=== PATIENT | male | born 1945 | race Caucasian/White ===

== ENCOUNTER 2021-03-12 09:39 | Outpatient (CLI) | payer MEDICARE, SELFPAY ==
--- NOTE | 2021-03-12 11:30 | NEURO_ITS ---
Impression: # Complains of pain and numbness of upper extremities. # Left ulnar neuropathy across the elbow. # Bilateral sensory Carpal Tunnel Syndrome. # Needle/EMG exam neurogenic; Higher involvement needs to be ruled out as well. Nerve Conduction Studies Anti Sensory Summary Table Stim Site NR Peak (ms) P-T Amp (?V) Site1 Site2 Delta-P (ms) Dist (cm) Da (m/s) Left Median Anti Sensory (2-3nd Digit) Wrist 5.3 73.1 Wrist 2-3nd Digit 5.3 14.0 26 Wrist 4.8 117.2 Wrist 2-3nd Digit 5.3 14.0 26 Right Median Anti Sensory (2-3nd Digit) Wrist 5.4 86.0 Wrist 2-3nd Digit 5.4 14.0 26 Wrist 5.5 118.1 Wrist 2-3nd Digit 5.4 14.0 26 Left Radial Anti Sensory (Base 1st Digit) Wrist 2.0 33.0 Wrist Base 1st Digit 2.0 0.0 Right Radial Anti Sensory (Base 1st Digit) Wrist 2.0 24.2 Wrist Base 1st Digit 2.0 0.0 Left Ulnar Anti Sensory (5th Digit) Wrist 3.1 15.9 Wrist 5th Digit 3.1 14.0 45 Right Ulnar Anti Sensory (5th Digit) Wrist 174.3 Wrist 5th Digit 14.0 Motor Summary Table Stim Site NR Onset (ms) O-P Amp (mV) Site1 Site2 Delta-0 (ms) Dist (cm) Da (m/s) Left Median Motor (Abd Poll Brev) Wrist 3.4 3.3 Elbow Wrist 6.0 25.0 42 Elbow 9.4 2.1 Right Median Motor (Abd Poll Brev) Wrist 3.6 5.4 Elbow Wrist 4.5 25.0 56 Elbow 8.1 4.5 Left Ulnar Motor (Abd Dig Minimi) Wrist 1.8 8.6 A Elbow Wrist 5.2 27.0 52 A Elbow 7.0 5.7 Right Ulnar Motor (Abd Dig Minimi) Wrist 2.3 11.2 A Elbow Wrist 4.1 25.0 61 A Elbow 6.4 10.3 F Wave Studies NR F-Lat (ms) L-R F-Lat (ms) Left Median (Mrkrs) (Abd Poll Brev) 28.08 1.53 Right Median (Mrkrs) (Abd Poll Brev) 29.61 1.53 Left Ulnar (Mrkrs) (Abd Dig Min) 27.42 1.38 Right Ulnar (Mrkrs) (Abd Dig Min) 26.04 1.38 EMG Side Muscle Nerve Root Ins Act Fibs Amp Dur Recrt Comment Right 1stDorInt Ulnar C8-T1 Nml Nml Nml >12ms Reduced Right Ext Indicis Radial (Post Int) C7-8 Nml Nml Nml Nml Nml Right Ext Digitorum Radial (Post Int) C7-8 Nml Nml Nml Nml Nml Right BrachioRad Radial C5-6 Nml Nml Nml Nml Nml Right PronatorTeres Median C6-7 Nml Nml Nml Nml Nml Right Abd Poll Brev Median C8-T1 Nml Nml Nml >12ms Reduced Left 1stDorInt Ulnar C8-T1 Nml Nml Nml >12ms Reduced Left Ext Indicis Radial (Post Int) C7-8 Nml Nml Nml Nml Nml Left Ext Digitorum Radial (Post Int) C7-8 Nml Nml Nml Nml Nml Left BrachioRad Radial C5-6 Nml Nml Nml Nml Nml Left PronatorTeres Median C6-7 Nml Nml Nml Nml Nml Left Abd Poll Brev Median C8-T1 Nml Nml Nml >12ms Reduced MTDD
== END 2021-03-12 09:40 | disposition home or self-care (01) ==
LOC: ANHNEURO 09:46
PROVIDERS: PCP Family Medicine; Visit Provider Family Medicine
DX: G56.03 Carpal tunnel syndrome, bilateral upper limbs (principal); G56.22 Lesion of ulnar nerve, left upper limb; G60.9 Hereditary and idiopathic neuropathy, unspecified
CPT/HCPCS: 95886; 95911

== ENCOUNTER 2021-05-05 08:29 | Outpatient (CLI) | payer MEDICARE, SELFPAY ==
--- NOTE | ~2021-05-05 | NM_ITS ---
EXAMINATION: NM bone scan whole body DATE: 05/05/2021 11:55 INDICATION: Prostate cancer TECHNIQUE: 24.7 mCi Tc-99m HDP was administered intravenously. Delayed whole-body scintigrams were o btained. COMPARISON: CT abdomen and pelvis dated 05/05/2021 FINDINGS: Appears marked increased uptake at the right side of the sacrum and posterior iliac spine correspondi ng to the large sclerotic bone lesions on the prior CT. Additional increased uptake and corresponding sclerotic bone lesions at the right side of the L2 vertebral body, smaller focus at the right side o f T10 vertebral body there and at the anterior left sixth rib. These are consistent with osseous meta static disease. Relatively symmetric moderate likely degenerative joint centered uptake at the bilate ral sternoclavicular joints. Additional foci of intense uptake at the right shoulder in the region of the coracoid process and at the palmar aspect of the right hand in the region of the proximal carpal row, both atypical location for arthritis and which are suspicious for additional metastatic disease although no other imaging is available for comparison. IMPRESSION: 1. Multiple regions/foci of prominent bone uptake in atypical locations several with corresponding to sclerotic bone lesions on prior CT most consistent with metastatic prostate cancer. Reviewed, dictated and finalized at location A.
--- NOTE | ~2021-05-05 | CT_ITS ---
EXAMINATION: CT abdomen pelvis w con DATE: 05/05/2021 09:33 INDICATION: Prostate cancer TECHNIQUE: Computed tomography (CT) of the abdomen and pelvis was performed with 100 cc Omnipaque 350 intravenous contrast. Automated exposure control and iterative reconstruction technique were employe d. Exam dose: 362.82 mGy-cm total exam DLP. COMPARISON: None. FINDINGS: The lung bases are clear of infiltrate or consolidation. Normal heart size. No pericardial or pleural effusion. Minimal bilateral gynecomastia. There is evidence of gallbladder polyps. No gallbladder wall thickening or pericholecystic fluid or f at stranding. Diffuse hepatic steatosis. No hepatic, splenic, pancreatic or adrenal space-occupying mass lesion is evident. Multiple bilateral renal cysts measuring up to 2.9 cm on the right and 4.2 cm on the left. There is a large irregular mass in the posterior aspect of the urinary bladder, measuring as much as 2.4 cm dimension. This may be direct extension of prostate cancer or possibly urinary bladder maligna ncy. Cystoscopic correlation with biopsy is recommended. There is diffuse thickening of the urinary bladder wall and prostate enlargement and calcification. There is atherosclerotic calcification throughout the abdominal aorta but no abdominal aortic aneurys m. No intraperitoneal or retroperitoneal or pelvic mass lesion or adenopathy or ascites is noted othe rwise. There is diverticulosis of the sigmoid and descending colon; no CT evidence of diverticulitis. No bow el obstruction, bowel wall thickening, pneumatosis or intraperitoneal free air is detected. Normal ap pendix. There are scattered osteosclerotic lesions consistent with prostate metastases, including L2 vertebra l body, the sacrum, right ilium IMPRESSION: Approximately 2.4 cm irregular mass in the posterior aspect of the urinary bladder semin al diffuse diagnosis includes extension of prostate cancer versus urinary bladder primary malignancy. Cystoscopic correlation and biopsy should be considered Prostate enlargement and calcifications; diffuse thickening of the urinary bladder wall Osteosclerotic prostate metastases involving L2, right ilium, sacrum Diverticulosis of the colon; no CT evidence of diverticulitis Normal appendix Gallbladder polyps Hepatic steatosis Bilateral renal cysts Reviewed, dictated and finalized at [facility]. Reviewed, dictated and finalized at location A. IMPRESSION: Approximately 2.4 cm irregular mass in the posterior aspect of the urinary bladder seminal diffuse diagnosis includes extension of prostate cance r versus urinary bladder primary malignancy. Cystoscopic correlation and biopsy should be considered Prostate enlargement and calcifications; diffuse thickening of the urinary blad aaliyah wall Osteosclerotic prostate metastases involving L2, right ilium, sacrum Diverticulosis of the colon; no CT evidence of diverticulitis Normal appendix Gallbladder polyps Hepatic steatosis Bilateral renal cysts
[2021-05-05 09:14] LABS: Estimated Glomerular Filt Rate > 60
== END 2021-05-05 08:30 | disposition home or self-care (01) ==
PROVIDERS: PCP Family Medicine; Visit Provider Urology
DX: C61 Malignant neoplasm of prostate (principal); N28.1 Cyst of kidney, acquired; K76.0 Fatty (change of) liver, not elsewhere classified; K57.30 Diverticulosis of large intestine without perforation or abscess without bleeding
CPT/HCPCS: 74177; 78306; A9561; Q9967

== ENCOUNTER 2021-05-12 07:42 | Outpatient (CLI) | payer MEDICARE, SELFPAY ==
--- NOTE | 2021-05-12 07:54 | ECG_ITS ---
Measurements Intervals [employer] Rate: 76 P: -78 WV: 127 QRS: 88 QRSD: 129 T: 8 QT: 392 QTc: 442 Interpretive Statements SINUS RHYTHM RIGHT BUNDLE BRANCH BLOCK BASELINE ARTIFACT- I, II, III, AVR, AVL, AVF ABNORMAL ECG Electronically Signed On 05-12-2021 8:09:56 CDT by Alirio Bonner D.O.
[2021-05-12 08:31] LABS: Anion Gap 13 mmol/L (8-16); Blood Urea Nitrogen 23 mg/dL (9-20); Calcium 9.4 mg/dL (8.4-10.2); Carbon Dioxide 22 mmol/L (22-30); Chloride 103 mmol/L (98-107); Estimated Glomerular Filt Rate > 60; Glucose 128 mg/dL (65-110); Potassium 4.7 mmol/L (3.4-5.0); Sodium 138 mmol/L (137-145)
[2021-05-12 08:32] LABS: INR 0.9; Prothrombin Time 12.3 Seconds (11.1-14.7)
[2021-05-12 08:37] LABS: Basophils Absolute Auto 0.1 K/mm3 (0.0-0.1); Basophils Percent Auto 0.5 % (0.2-1.2); Eosinophils Absolute Auto 0.3 K/mm3 (0-0.3); Hematocrit 39.3 % (42.0-52.0); Hemoglobin 12.9 g/dL (14.0-18.0); Immature Granulocyte Absolute 0.08 K/mm3 (0.00-0.031); Immature Granulocyte Percent A 0.5 % (0-0.5); Lymphocytes Percent Auto 15.7 % (18.3-44.2); Mean Corpuscular HGB Conc 32.8 g/dl (32-36); Mean Corpuscular Hemoglobin 29.2 pg (26-34); Mean Corpuscular Volume 88.9 fl (80-100); Mean Platelet Volume 10.7 fl (7.4-10.4); Monocytes Percent Auto 6.4 % (2.6-8.5); Neutrophils Absolute Auto 11.5 K/mm3 (1.3-6.7); Neutrophils Percent Auto 74.9 % (45.5-73.1); Platelet Count Result 442 k/mm3 (150-375); Red Blood Count 4.42 M/mm3 (4.6-6.20); Red Cell Distribution Width 13.1 % (11.5-14.5); White Blood Count 15.3 K/mm3 (4.5-10.0)
== END 2021-05-12 07:43 | disposition home or self-care (01) ==
LOC: ANHSURGERY 07:43
PROVIDERS: PCP Family Medicine; Visit Provider Urology
DX: Z01.818 Encounter for other preprocedural examination (principal); D49.4 Neoplasm of unspecified behavior of bladder; I45.10 Unspecified right bundle-branch block; Z51.81 Encounter for therapeutic drug level monitoring; Z79.899 Other long term (current) drug therapy
CPT/HCPCS: 36415; 80048; 85025; 85610; 85730; 87086; 93005

== ENCOUNTER 2021-05-19 00:50 | Day surgery (SDC) | payer MEDICARE, SELFPAY ==
[2021-05-08 14:56] VITALS: BMI 24.2
[2021-05-19] VITALS (7 sets, daily range): BP systolic 131–148; BP diastolic 59–94; PULSE 63–75; RESP 12–18; TEMP 36.7–36.9; O2SAT 100
--- NOTE | 2021-05-19 08:11 | WPDHPUPDATE1 ---
History and Physical Update Update Date/Time: 05/19/21 08:11 History and Physical has been reviewed, including an updated exam of the patient. There are NO changes in the patient's condition. Risks, benefits, and alternatives have been discussed and questions answered. Patient agrees to proceed with procedure.
[2021-05-19] MEDS: LACTATED RINGERS 1,000 ML 30 ML IV CONT (08:20)
--- NOTE | 2021-05-19 09:00 | WPDANESEPPF ---
Anes - Initial Pre Proc Eval Procedure: Operation Date: 05/19/21 09:30 Proposed Procedures p Trans Urethral Resection Bladder Tumor - Marcelo Hurd MD Date/Time: 05/19/21 09:00 Surgeon: Marcelo Hurd MD Pre Op Diagnosis: prostate CA, lesion bladder tumor Patient Data Age: 75 Gender: M Height: 1.63 m Weight: 60.6 kg Last Vital Signs Temp 36.7 C 05/19/21 07:52 Pulse 66 05/19/21 07:52 Resp 16 05/19/21 07:52 BP 131/60 05/19/21 07:52 Pulse Ox 100 05/19/21 07:52 Allergies Allergy/AdvReac Type Severity Reaction Status Date / Time aspirin Allergy Hives, Verified 05/19/21 08:11 SWELLING penicillin G Allergy Unknown Verified 05/19/21 08:11 Home Medications Medication Instructions Recorded Confirmed Type amlodipine 10 mg PO QAM 05/08/21 05/19/21 History fluticasone propionate 1 spray INTRANASAL DAILY PRN 05/08/21 05/19/21 History multivit with min-folic acid 1 tablet PO DAILY 05/08/21 05/19/21 History [Daily Multiple For Men] omega-3 fatty acids-vitamin E 1 cap PO DAILY 05/08/21 05/19/21 History [Fish Oil] quinapril 20 mg PO QAM 05/08/21 05/19/21 History Patient hx anesthesia problems: none Family hx anesthesia problems: none PMFSH Past Medical History Medical History (Updated 05/19/21 @ 09:02 by Tommie Cohen MD) HTN (hypertension) Lesion of bladder Prostate CA Social History Social History Smoking packs per day: 1 Smoking cigarettes per day: 20.0 Years smoked: 3 Smoking pack-years: 3.00 Smoking status: Former smoker Smoking end date: 04/16/70 Alcohol intake: current Drinks per week: 2 Substance use: never Living arrangements: alone Spiritual care concerns: No Anes - Eval Final PreProcedure Day of Procedure 05/19/21 09:00 Patient weight: normal Heart: regular rate and rhythm Lungs: clear to auscultation and normal air movement Airway: Mallampati scale class II Neurological: alert and oriented Last oral intake: >/= 8 hours ASA classification: III Emergent: no Anesthetic plan: proceed Anesthesia type and monitoring: general LMA Informed Consent: The patient's anesthetic plan and its attendant risks and benefits were discussed with the patient/family/POA. Questions were solicited and answers provided to the satisfaction of the patient/family/POA.
[2021-05-19] MEDS: ceFAZolin 2 GM/D5W 50 ML 2 GM/50 ML BAG IVPB (09:32)
[2021-05-19] MEDS: LIDOCAINE HCL 2% GEL UROJET 10 ML PKG MUCOUS MEM (09:56)
--- NOTE | 2021-05-19 10:04 | P.OP_ITS ---
Procedure Note - Detailed Date of Procedure 05/19/21 Pre-op Diagnosis prostate CA, lesion bladder tumor Post-op Diagnosis same Procedure Performed Transurethral resection of bladder tumor medium size approximately 3 cm area total. Surgeon Marcelo Hurd MD Anesthesia general Description of Procedure Patient is taken to the operative suite and correctly identified. Once anesthesia was obtained he was placed in dorsal lithotomy position and prepped draped usual sterile fashion. 24 [place] resectoscope sheath was inserted the bladder. Bladder was inspected. He has some small clots noted which were evacuated. He has a papillary tumor growth along the floor just medial to the left ureteral orifice. There is 2 cluster of tumors in this location. The 3rd tumor located along the posterior wall. In total its close to 3 cm worth of tumor. We went ahead and resected these areas. The base was fulgurated. We sent the specimens for analysis. There was good hemostasis at termination of procedure. Patient does have some lateral lobe hypertrophy. 2% viscous lidocaine was inserted into the urethra. Eighteen [place] Ocampo was placed inflated with 10 cc normal saline. This was connected to continuous bladder irrigation. Patient is taken recovery room stable condition. Patient will be d ischarged home with a Ocampo catheter and have removed either Tuesday or . If develops any problems he is to call the office. He is also instructed to call the office in a week for path results. Drains Yes Packing No Pathology yes Complications No immediate complications Condition stable Disposition PACU
--- NOTE | 2021-05-19 12:27 | SUR.PHASEII ---
DR. GENTILE' OFFICE CALLED TO CLARIFY DISCHARGE ORDERS.
== END 2021-05-19 12:10 | disposition home or self-care (01) ==
PROVIDERS: PCP Family Medicine; Visit Provider Urology
PROC: 0TBB8ZZ Excision of Bladder, Via Natural or Artificial Opening Endoscopic (ICD-10-PCS; CPT 52235; principal; 2021-05-19 09:30)
DX: C67.0 Malignant neoplasm of trigone of bladder (principal); C67.4 Malignant neoplasm of posterior wall of bladder; C61 Malignant neoplasm of prostate; R31.0 Gross hematuria; R33.9 Retention of urine, unspecified; R97.20 Elevated prostate specific antigen [PSA]; I10 Essential (primary) hypertension
CPT/HCPCS: 52235; 36415; 80048; 85025; 85610; 85730; 87086; 88305; 93005; A9270; J0690; J2405; J2704; J3010; J7120

== ENCOUNTER 2022-07-30 09:37 | Outpatient (CLI) | payer MEDICARE, SELFPAY ==
--- NOTE | ~2022-07-30 | CT_ITS ---
EXAMINATION: CT abdomen pelvis w con DATE: 07/30/2022 12:47 INDICATION: Malignant neoplasm of prostate. TECHNIQUE: Computed tomography (CT) of the abdomen and pelvis was performed with 100 mL Omnipaque 350 intravenous contrast. Automated exposure control and iterative reconstruction technique were employe d. The dose-length product was 365.81 mGy-cm. COMPARISON: CT abdomen and pelvis 05/05/2021 FINDINGS: The visualized portions of the lung bases demonstrates mild atelectasis. There is a pneumat ocele in left lower lobe. No pleural effusion. The heart size is normal. There are coronary artery ca lcifications. No pericardial effusion. The liver is normal. There is an 11 mm hypodense mass in the s pleen without change, likely benign. There are gallstones in the gallbladder, which is normal in size . The pancreas and adrenal glands are normal. There are cysts in the kidneys measuring up to 4.4 cm o n the left. There is a 3 mm stone in right kidney. There is a left inguinal hernia containing fat. Th ere is diverticulosis of the colon without evidence of diverticulitis. The appendix is normal. There are no dilated loops of bowel. There is mild stenosis of celiac axis and moderate stenosis of superio r mesenteric artery. There is mild stenosis of inferior mesenteric artery. There are no pathologicall y enlarged lymph nodes. There is no free intraperitoneal fluid. There is severe lumbar spondylosis an d mild thoracic spondylosis. There are bridging endplate osteophytes at multiple levels in the thorac ic spine, consistent with diffuse idiopathic skeletal hyperostosis (DISH). Again seen are sclerotic l esions in the sacrum and pelvis. There is worsened sclerosis in right ilium. Sclerosis in L2 vertebra l body has improved. IMPRESSION: 1. Sclerotic lesions of bone with improvement in L2 and worsening in right ilium, consistent with met astatic disease. Reviewed, dictated and finalized at location A. IMPRESSION: 1. Sclerotic lesions of bone with improvement in L2 and worsening in right iliu m, consistent with metastatic disease.
--- NOTE | ~2022-07-30 | NM_ITS ---
EXAMINATION: NM bone scan whole body DATE: 07/30/2022 14:39 INDICATION: Prostate cancer TECHNIQUE: 25.4 mCi Tc-99m HDP was administered intravenously. Delayed whole-body scintigrams were o btained. COMPARISON: CT abdomen and pelvis dated 07/30/2022 and bone scan and CT abdomen and pelvis dated 05/05 FINDINGS: Minimal decrease in intensity of a region of still relatively intense uptake at the sacrum and right posterior iliac spine with corresponding sclerosis on prior CT consistent with metastatic disease. Si gnificant decrease in the degree of uptake as well as associated sclerosis at the L2 vertebral body. New linear pattern of increased uptake at the anterior left third-sixth ribs and at 3 locations along the adjacent left lateral margin of the sternum which given the configuration most consistent with r ib fractures. Decrease in intensity of uptake associated with a sclerotic lesion at the anterolateral left sixth rib consistent with metastatic disease. Likely degenerative joint centered uptake at the right acromioclavicular and bilateral sternoclavicular articulations. Slight decrease in the intensit y of a focus of still relatively intense uptake in the region of the right coracoid process suspiciou s for additional metastatic disease. IMPRESSION: 1. Likely some response to treatment of metastatic disease with mild decrease in the degree of abnorm al increased uptake associated with sclerotic lesions at the sacrum and right posterior iliac spine, the L2 vertebral body, anterolateral left sixth rib as well as at the left coracoid process there is no corresponding CT imaging to assess for associated sclerotic lesion. 2. Several new foci of increased uptake noted in a linear pattern at a few anterior left ribs as well as along the adjacent left lateral margin of the sternum consistent with likely nondisplaced rib fra ctures. No other new lesions suspicious for progression of disease. Reviewed, dictated and finalized at location B. IMPRESSION: 1. Likely some response to treatment of metastatic disease with mild decrease i n the degree of abnormal increased uptake associated with sclerotic lesions at the sacrum and right posterior iliac spine, the L2 vertebral body, anterolatera l left sixth rib as well as at the left coracoid process there is no correspond ing CT imaging to assess for associated sclerotic lesion. 2. Several new foci of increased uptake noted in a linear pattern at a few ante rior left ribs as well as along the adjacent left lateral margin of the sternum consistent with likely nondisplaced rib fractures. No other new lesions suspic ious for progression of disease.
[2022-07-30 12:30] LABS: Estimated Glomerular Filt Rate > 60
== END 2022-07-30 09:38 | disposition home or self-care (01) ==
PROVIDERS: PCP Family Medicine; Visit Provider Urology
DX: C61 Malignant neoplasm of prostate (principal); Z80.0 Family history of malignant neoplasm of digestive organs; I25.10 Atherosclerotic heart disease of native coronary artery without angina pectoris; K55.1 Chronic vascular disorders of intestine; M47.815 Spondylosis without myelopathy or radiculopathy, thoracolumbar region; M53.86 Other specified dorsopathies, lumbar region
CPT/HCPCS: 74177; 78306; A9561; Q9967